=== PATIENT | female | born 1980 | race Caucasian/White ===

== ENCOUNTER 2016-12-07 16:07 | Emergency (ER) | payer OTHER ==
[~2016-12-07] VITALS: Ht 152.4 cm; Wt 76.2 kg
[2016-12-07 16:36] LABS: ABSOLUTE BASOPHIL COUNT 0 /CUMM (0.0-0.2); ABSOLUTE EOSINOPHIL COUNT 0 /CUMM (0.0-0.7); ABSOLUTE GRANULOCYTE CT 3.9 /CUMM (1.4-6.5); ABSOLUTE LYMPH COUNT 0.3 /CUMM (1.2-3.4); ABSOLUTE MONOCYTE COUNT 0.1 /CUMM (0.10-0.60); BASOPHIL % 0.4 % (0.0-2.0); EOSINOPHIL % 0 % (0-5); HEMATOCRIT 41.3 % (37-47); MEAN CORPUSCULAR HGB 28.9 PG (27.0-31.0); MEAN CORPUSCULAR HGB CONC 33.7 G/DL (33.0-37.0); MEAN CORPUSCULAR VOLUME 85.9 FL (81.0-99.0); MEAN PLATELET VOLUME 7.8 FL (7.4-10.4); PLATELET COUNT 196 /CUMM (130-400); RBC DISTRIBUTION WIDTH 13.1 % (11.5-14.5); RED BLOOD CELL CT 4.81 /CUMM (4.20-5.40)
[2016-12-07 16:52] LABS: WHITE BLOOD CELL COUNT 4.4 /CUMM (4.8-10.8)
--- NOTE | 2016-12-07 17:09 | ED GENERAL ADULT ---
History of Present Illness General Chief Complaint: Fever Stated Complaint: SENT BY [facility] FOR EVAL FEVER,BODY PAIN Source: patient Exam Limitations: no limitations Vital Signs & Intake/Output Vital Signs & Intake/Output Vital Signs Date Time Temp Pulse Resp B/P B/P Pulse O2 O2 Flow FiO2 Mean Ox Delivery Rate 12/07 1855 98.9 80 20 135/81 96 Room Air 12/07 1733 99.9 94 18 138/90 100 Room Air 12/07 1645 100.3 12/07 1619 102.0 12/07 1610 102.0 131 15 172/104 98 Room Air Room Air ED Intake and Output 12/08 0000 12/07 1200 Intake Total 1000 Output Total Balance 1000 Intake, IV 1000 Patient 168 lb Weight Weight Reported by Patient Measurement Method Allergies Coded Allergies: latex (Intermediate, HIVES 12/07/16) Reconcile Medications Doxycycline Hyclate 100 MG TABLET 1 TAB PO BID erlichiosis Triage Note: PT TO ED FOR C/C OF ALL OVER BODY PAIN, FEVER, HEADACHE THAT STARTED YESTERDAY. PT SEEN AT [facility] TODAY, HAD A CHEST XRAY WHICH WAS NEGATIVE. PT ALSO REPORTS SHE WAS BIT BY A TICK 1 WEEK AGO WITHOUT RASH. PT HYPERTENSIVE, TACHYCARDIC AND FEBRILE 102 IN TRIAGE. PT TOOK 600 MG OF MOTRIN AT 1300 TODAY. Triage Nurses Notes Reviewed? yes Onset: Gradual Duration: hour(s): Timing: last night Severity: severe No Modifying Factors: none : No Patient currently breastfeeds: No HPI: 35yo female presents to ED complaining of arthralgias and malaise since last night. She states that one week ago she pulled a tick off her left lower abdomen , she is unsure how long tick was present, could have been longer than 24 hours. She states she has pain in her neck and back as well as ankle, she can't find a position where she is comfortable. Pain and malaise have gradually worsened since onset. She is also c/o headache. She states her chest feels sore bilaterally, she denies dyspnea or crushing chest pain. She states her dog and have both been treated for lyme disease recently. She was evaluated at an urgent care prior to arrival, CXR performed which was negative, however given her high Fever she was referred here. She denies chills, diarrhea, dysuria, hematuria, abdominal pain, nausea, vomiting, cough, sore throat, ear pain. (JAE BESS PA-C) Past History Travel History Traveled to [place] past 21 day No Medical History Any Pertinent Medical History? none Neurological: NONE EENT: NONE Cardiovascular: NONE Respiratory: NONE Gastrointestinal: NONE Hepatic: NONE Renal: NONE Musculoskeletal: NONE Psychiatric: NONE Endocrine: NONE Blood Disorders: NONE Cancer(s): NONE [employer]/Reproductive: NONE Surgical History Surgical History: non-contributory Psychosocial History What is your primary language Swedish Tobacco Use: Never used ETOH Use: denies use Illicit Drug Use: denies illicit drug use Family History Hx Contributory? No (JAE BESS PA-C) Review of Systems Review of Systems Constitutional: Reports: see HPI. EENTM: Reports: no symptoms. Respiratory: Reports: no symptoms. Cardiovascular: Reports: no symptoms. GI: Reports: no symptoms. Genitourinary: Reports: no symptoms. Musculoskeletal: Reports: see HPI. Skin: Reports: no symptoms. Neurological/Psychological: Reports: see HPI. Hematologic/Endocrine: Reports: no symptoms. Immunologic/Allergic: Reports: no symptoms. All Other Systems: Reviewed and Negative (JAE BESS PA-C) Physical Exam Physical Exam General Appearance: well developed/nourished, no apparent distress, alert, awake Head: atraumatic, normal appearance Eyes: Bilateral: normal appearance, EOMI. Ears, Nose, Throat: hearing grossly normal Neck: normal inspection, supple, full range of motion Respiratory: no respiratory distress, inspiratory wheezing bilaterally Cardiovascular: tachycardia Peripheral Pulses: 2+ dorsalis pedis (R), 2+ dorsalis pedis (L) Gastrointestinal: normal bowel sounds, soft, non-tender, no organomegaly Back: normal inspection, normal range of motion, no vertebral tenderness, no CVA tenderness Extremities: normal range of motion Neurologic/Psych: awake, alert, oriented x 3 Skin: erythema and warmth over skin of upper back, face, chest, upper arms, nontender to palpation, blanches with pressure Lymphatic: no anterior cervical ye Core Measures ACS in differential dx? No CVA/TIA Diagnosis: No Severe Sepsis Present: No Septic Shock Present: No (JAE BESS PA-C) Progress Differential Diagnoses I considered the following diagnoses in my evaluation of the patient: [lyme disease, babesiosis, meningitis, erlichiosis] Plan of Care: Orders Procedure Date/time Status Add-on Test (ER Only) 12/07 1741 Active COMPREHENSIVE METABOLIC PANEL 12/07 161 Complete CBC WITHOUT DIFFERENTIAL 12/07 161 Complete EKG 12/07 1616 Active Laboratory Tests 12/07/16 1630: Anion Gap 11, Estimated GFR > 60, BUN/Creatinine Ratio 15.0, Glucose 103 H, Calcium 9.2, Total Bilirubin 0.5, AST 130 H, ALT 148 H, Alkaline Phosphatase 74, Total Protein 7.3, Albumin 4.3, Globulin 3.0, Albumin/Globulin Ratio 1.4, CBC w Diff NO MAN DIFF REQ, RBC 4.81, MCV 85.9, MCH 28.9, RDW 13.1, MPV 7.8, Gran % 90.0 H, Lymphocytes % 6.4 L, Monocytes % 3.2, Eosinophils % 0, Basophils % 0.4, Absolute Granulocytes 3.9, Absolute Lymphocytes 0.3 L, Absolute Monocytes 0.1 L, Absolute Eosinophils 0, Absolute Basophils 0, PUBS MCHC 33.7, Lyme Disease Antibody Cancelled Patient given a liter normal saline and IV Toradol for her headache and joint pains. Repeat vital signs after meds and fluids show patient is afebrile, heart rate is 80, blood pressure within normal limits. Patient states that she feels improved following meds and fluids. Labs reveal elevated liver enzymes with mild leukopenia. Patient has positive tick exposure. High suspicion for erlichiosis given clinical presentation and labs. Lyme titer and tick panel sent. The patient was discussed with Dr. Hicks. The patient will take outpatient doxycycline and follow up with her primary care doctor. She will return with worsening symptoms or concerns. The patient is in agreement with the plan of care. The patient is in no acute distress, her vital signs have improved, she is nontoxic appearing. (JAE BESS PA-C) Initial ED EKG: sinus tachycardia at 128bpm, normal axis (JAE BESS PA-C) Departure Departure Disposition: HOME OR SELF CARE Condition: Stable Clinical Impression Primary Impression: Tick bite Secondary Impressions: Fever, Liver enzyme elevation Referrals: PATIENT HAS NO PRIMARY CARE DR (PCP/Family) Additional Instructions: Take full course of antibiotics. Take tylenol or Motrin as prescribed as needed for your pain. Call your primary care doctor to inform them that you are seen today. We will call you with results of a positive tick panel, you may need further blood work and for weeks. Return with any worsening symptoms or concerns, increased fevers, worsening pain, rash, abdominal pain. Departure Forms: Customer Survey General Discharge Information Prescriptions: Current Visit Scripts Doxycycline Hyclate 1 TAB PO BID #14 TAB (JAE BESS PA-C) PA/STEAM ROOM ATTENDANT Co-Sign Statement Statement: ED Attending supervision documentation- [] I saw and evaluated the patient. I have also reviewed all the pertinent lab results and diagnostic results. I agree with the findings and the plan of care as documented in the PA's/STEAM ROOM ATTENDANT's documentation. [x] I have reviewed the ED Record and agree with the PA's/STEAM ROOM ATTENDANT's documentation. [] Additions or exceptions (if any) to the PAs/STEAM ROOM ATTENDANT's note and plan are summarized below: [] (RONA HICKS DO) Critical Care Note Critical Care Note Critical Care Time: non-applicable (JAE BESS PA-C)
[2016-12-07 18:55] VITALS: BP 135/81
[2016-12-07] MEDS ORDERED: DOXYCYCLINE HY100 M4 PO (19:13)
== END 2016-12-07 19:39 ==
LOC: ERH 16:07
PROVIDERS: Emergency Medicine
DX: S30.861A Insect bite (nonvenomous) of abdominal wall, initial encounter (principal); R94.5 Abnormal results of liver function studies; W57.XXXA Bitten or stung by nonvenomous insect and other nonvenomous arthropods, initial encounter; Y93.89 Activity, other specified; Y92.9 Unspecified place or not applicable
CPT/HCPCS: 86317; 86618; 87798; 93005; 93010; 96374; J1885